=== PATIENT | female | born 1965 | race American Indian/Alaskan Native ===

== ENCOUNTER 2021-06-02 20:46 | Emergency (ER) | payer SELFPAY ==
[2021-06-02] MEDS ORDERED: HYDROcodone/ACETAMINOPHEN 10-325MG TAB PO ONE (20:57)
--- NOTE | 2021-06-02 20:59 | Event Note ---
ED Screening Note ED Screening Note: 55-year-old female that presents with left elbow pain, wrist, and forearm pain s/p fall. Exam: neurovascular intact with some possible deformity present at left elbow area. This initial assessment/diagnostic orders/clinical plan/treatment(s) is/are subject to change based on patients health status, clinical progression and re- assessment by fellow clinical providers in the ED. Further treatment and workup at subsequent clinical providers discretion. Patient/guardian urged not to elope from the ED as their condition may be serious if not clinically assessed and managed. Initial orders include: norco for pain imaging studies
--- NOTE | 2021-06-02 21:29 | XRay Report ---
Left forearm 3 views INDICATION: Pain FINDINGS: There is a comminuted fracture deformity within the elbow. Multiple fracture fragments are seen involving the distal humeral condyles and radial head and neck anteriorly. Multiple fracture fra gments are seen within the joint space with distention of the joint space and mild subluxation of dis shraddha humerus anteriorly in relation to the olecranon. Old fracture deformity suggested within the radi al shaft. IMPRESSION: Comminuted fracture deformity within the elbow involving the radial head neck and distal humerus. Lar ge fracture fragments are seen within the joint space with subluxation of the distal humerus anterior ly with is perched on top of the coracoid process of the ulna. Signer Name: Toñito Piña MD Signed: 06/02/2021 9:25 PM Workstation Name: [id number]
--- NOTE | 2021-06-02 21:59 | Emergency Department Report ---
ED Upper Extremity Inj HPI - General Chief Complaint: Extremity Injury, Upper Stated Complaint: POSSIBLE BROKEN LT ELBOW Time Seen by Provider: 06/02/21 20:57 Source: patient Mode of arrival: Ambulatory Limitations: No Limitations - History of Present Illness Initial Comments: Patient is a 55-year-old female presents emergency room with complaints of a left elbow injury that occurred just prior to arrival. Patient states that she was outside playing with her grandchildren when she tripped over the dog. She states that she landed directly onto her elbow. She states since then she has had elbow pain and swelling. She denies any numbness or weakness. she states she did fracture this arm previously when she was in the 9th grade. No past medical history. No allergies medications. - Related Data Allergies Allergy/AdvReac Type Severity Reaction Status Date / Time No Known Allergies Allergy Unverified 06/02/21 20:52 ED Review of Systems ROS: Stated complaint: POSSIBLE BROKEN LT ELBOW Other details as noted in HPI Comment: All other systems reviewed and negative ED Past Medical Hx - Past Medical History Previous Medical History?: No - Surgical History Past Surgical History?: No - Social History Smoking Status: Never Smoker ED Physical Exam - General Limitations: No Limitations General appearance: alert, in no apparent distress - Head Head exam: Present: atraumatic, normocephalic - Eye Eye exam: Present: normal appearance - ENT ENT exam: Present: mucous membranes moist - Extremities Exam Extremities exam: Present: other (left posterior and medial elbow ttp, decreased ROM secondary to pain, no ttp to the left hand, wrist or shoulder, skin is intact, neurovascularly intact) - Neurological Exam Neurological exam: Present: alert, oriented X3 - Psychiatric Psychiatric exam: Present: normal affect, normal mood - Skin Skin exam: Present: warm, dry, intact ED Course Vital Signs 06/02/21 20:48 Temperature 98.8 F Pulse Rate 90 Respiratory 16 Rate Blood Pressure 159/68 O2 Sat by Pulse 100 Oximetry - Consultations Consultation #1: 06/02/21 23:[address] Chase, [place] [facility] trauma attending, will accept and resume care of patient, patient will be transported to [facility] ED Medical Decision Making - Radiology Data Radiology results: report reviewed Ordering Physician: CARLEE HODGES Date of Service: 06/02/21 Procedure(s): XR forearm LT Accession Number(s): [id number] cc: CARLEE HODGES Fluoro Time In Minutes: Left forearm 3 views INDICATION: Pain FINDINGS: There is a comminuted fracture deformity within the elbow. Multiple fracture fragments are seen involving the distal humeral condyles and radial head and neck anteriorly. Multiple fracture fragments are seen within the joint space with distention of the joint space and mild subluxation of distal humerus anteriorly in relation to the olecranon. Old fracture deformity suggested within the radial shaft. IMPRESSION: Comminuted fracture deformity within the elbow involving the radial head neck and distal humerus. Large fracture fragments are seen within the joint space with subluxation of the distal humerus anteriorly with is perched on top of the coracoid process of the ulna. Signer Name: Toñito Piña MD Signed: 06/02/2021 9:25 PM Workstation Name: [id number] Transcribed By: PURNIMA Dictated By: RIO PIÑA MD Electronically Authenticated By: RIO PIÑA MD Signed Date/Time: 06/02/212124 DD/ 22 TD/TT: - Medical Decision Making Patient is a 55-year-old female presents emergency room with complaints of a left elbow injury that occurred just prior to arrival. Patient states that she was outside playing with her grandchildren when she tripped over the dog. She states that she landed directly onto her elbow. She states since then she has had elbow pain and swelling. She denies any numbness or weakness. she states she did fracture this arm previously when she was in the 9th grade. No past medical history. No allergies medications. Vitals are stable. On exam:left posterior and medial elbow ttp, decreased ROM secondary to pain, no ttp to the left hand, wrist or shoulder, skin is intact, neurovascularly intact. xr left forearm: Comminuted fracture deformity within the elbow involving the radial head neck and distal humerus. Large fracture fragments are seen within the joint space with subluxation of the distal humerus anteriorly with is perched on top of the coracoid process of the ulna. Discussed case with Dr. Hodges, ER attending who reviewed images and advised to consult orthopedics. [place], placement secretary advised me that we do not have orthopedic on-call today at our facility.Spoke to Dr. Chase, [place] trauma attending, will accept and resume care of patient, patient will be transported to [facility]. Patient transferred via EMS. Patient is agreeable with plan. Critical care attestation.: If time is entered above; I have spent that time in minutes in the direct care of this critically ill patient, excluding procedure time. ED Disposition Clinical Impression: Fracture of radial neck, left, closed Qualifiers: Encounter type: initial encounter Fracture alignment: nondisplaced Qualified Code(s): S52.135A - Nondisplaced fracture of neck of left radius, initial encounter for closed fracture Closed fracture of left distal humerus Qualifiers: Encounter type: initial encounter Fracture morphology: unspecified fracture morphology Qualified Code(s): S42.402A - Unspecified fracture of lower end of left humerus, initial encounter for closed fracture Left radial head fracture Qualifiers: Encounter type: initial encounter Fracture type: closed Fracture alignment: nondisplaced Qualified Code(s): S52.125A - Nondisplaced fracture of head of left radius, initial encounter for closed fracture Disposition: DC/TX-70 ANOTHER TYPE HLTHCARE Is pt being admited?: No Does the pt Need Aspirin: No Condition: Stable Print Language: [id number]
[2021-06-03] MEDS ORDERED: diphenhydrAMINE 25 MG CAP PO ONE (01:05)
[2021-06-03] MEDS ORDERED: HYDROmorphone 1 MG/1 ML INJ IM ONE (01:05)
[2021-06-03 01:15] VITALS: BP 142/62
== END 2021-06-03 01:30 | disposition other institution (70) ==
LOC: ED 20:46
DX: S52.135A Nondisplaced fracture of neck of left radius, initial encounter for closed fracture (principal); S42.402A Unspecified fracture of lower end of left humerus, initial encounter for closed fracture; S52.125A Nondisplaced fracture of head of left radius, initial encounter for closed fracture; W01.0XXA Fall on same level from slipping, tripping and stumbling without subsequent striking against object, initial encounter; Y93.89 Activity, other specified; Y92.89 Other specified places as the place of occurrence of the external cause; Y99.8 Other external cause status
CPT/HCPCS: 73090; 96372; 99284; J1170